=== PATIENT | male | born 1985 | race Caucasian/White ===

== ENCOUNTER 2023-10-08 12:11 | Emergency (ER) | payer OTHER, SELFPAY ==
[2023-10-08 12:54] VITALS: BP 132/85; PULSE 94; RESP 20; TEMP 37.6; O2SAT 98; BMI 26.6
--- NOTE | 2023-10-08 12:56 | ED_ITS ---
HPI - Fever General Chief Complaint: Upper Respiratory Symptoms Stated Complaint: Fever Time Seen by Provider: 10/08/23 13:30 Source: patient Mode of arrival: ambulatory Limitations: no limitations History of Present Illness HPI Narrative: Patient is a 38-year-old male presenting to the ED with complaint of subjective fever since Saturday, sore throat, nonproductive cough, epigastric pain. Denies vomiting or diarrhea. Has been taking amoxicillin from a friend without improvement. MD elicited complaint: fever Onset (ago): day(s) Context: recent antibiotic use Relieving factors: nothing Associated symptoms: chills, cough and abdominal pain Treatments prior to arrival fever: antibiotics Related Data Allergies Allergy/AdvReac Type Severity Reaction Status Date / Time No Known Allergies Allergy Unverified 04/07/20 18:42 Review of Systems 2 Review of Systems: As per HPI. Yes all other systems are reviewed and are negative Constitutional: Constitutional: Reports as per HPI [facility] Social History Social History Advance Directives: No Physical Exam 2 Vital Signs: Vital Signs: Last Vital Signs Temp 99.6 F 10/08/23 12:54 Pulse 94 10/08/23 12:54 Resp 20 10/08/23 12:54 BP 132/85 10/08/23 12:54 Pulse Ox 98 10/08/23 12:54 O2 Del Method Room Air 10/08/23 12:54 BMI result Body Mass Index 26.6 Vital signs have been reviewed and appear to be correct. Blood pressure normal. Heart rate normal. Respiratory rate normal. Temperature normal. Oxygen saturation normal. Const: General: cooperative, healthy appearing and no acute distress O rientation/consciousness: oriented to person, oriented to place, oriented to time and patient oriented x3 Limitations: no limitations HEENT: Head: Yes normocephalic and Yes atraumatic Ears: external ears normal, TM's normal bilaterally and EAC's normal General nose exam: Normal external nose present and Normal nasal mucous membranes and turbinates present Face and sinus: Yes face symmetric Mouth: Normal oral and palatal mucosa present, oropharynx normal and moist mucous membranes Throat: Yes posterior oropharynx normal, Yes tonsils normal and Yes uvula midline Eyes: Pupils: Equal, round and reactive pupils present Neck: Neck: Yes normal visual inspection, Yes no lymphadenopathy and Yes supple Resp: Effort & Inspection: normal respiratory effort and able to speak in complete sentences Auscultation: clear to auscultation bilaterally Cardio: Rate: regular rate Rhythm: regular rhythm Heart sounds: S1 normal heart sound present and S2 normal heart sound present GI: Palpation (GI): Soft to palpation and nontender Auscultation: n ormoactive bowel sounds : General: Yes no CVA tenderness Back/Spine/Pelvis: Back: no CVA tenderness Skin: General skin exam: elasticity normal and turgor normal Neuro: General: oriented to person, oriented to place, oriented to time, patient oriented x3, moves all extremities, no focal motor deficits and CN's II- XI intact bilaterally Cranial nerves: Yes Equal, round and reactive pupils present Cognition (Neuro): normal cognition Extrem: General: Yes full ROM, Yes no pedal edema and Yes no calf tenderness Psych: Mental Status: mental status grossly normal Affect: normal affect Thought process: Normal thought process present Course Course Course Narrative: This is an RME: Additional HPI, ROS, PE not included below will be deferred to primary provider. This is a 38-year-old male, with no known medical problems, presenting to the emergency department with complaints of fever, cough, congestion, sore throat, abdominal pain, nausea x3 days. On arrival, patient is alert, oriented, nontoxic appearing. Speaking full sentences. Lungs clear to auscultation bilaterally. Reporting epigastric tenderness on examination. He admits that he has been taking his friend's amoxicillin for the last several days which has not provided him with any relief. Plan: Labs, viral swabs Medical Decision Making Medical Decision Making MDM Narrative: Patient is a 38-year-old male presenting to the ED with complaint of subjective fever since Saturday, sore throat, nonproductive cough, epigastric pain. On exam patient is awake, A+Ox3, VS WNL, afebrile, normal neurological exam without focal deficits, physical exam findings as above. Given reported symptoms and physical exam findings, initial differential includes strep pharyngitis, flu, covid, RSV. Do not suspect bronchitis or pneumonia based on physical exam findings. Viral swab positive for influenza A. Labs grossly within normal limits. Patient updated on results and all questions answered. Advised patient to ensure adequate rest and adequate fluid intake, isolate at home for the next 3 days and continued wear a mask while symptomatic. Patient is outside the treatment window for Tamiflu. Advised him to alternate Tylenol and ibuprofen as needed. Return precautions discussed at bedside. Instructed patient to follow- up with primary care provider. Patient verbalized understanding of and agreement with plan. Differential Diagnosis Differential Diagnoses: The differential diagnosis associated with the presentation includes As per MDM. Lab Data [facility] Lab Attestation statement: I reviewed the patient's lab results. As per MDM. 10/08/23 14:30 10/08/23 14:30 Labs: Lab Results 10/08/23 Range/Units 14:30 WBC 7.1 (4.8-10.8) X10*3/uL RBC 5.43 (4.60-5.80) X10*6/uL Hgb 15.9 (14.0-18.0) g/dl Hct 48.5 (42.0-52.0) % MCV 89.3 (80.0-98.0) fL MCH 29.3 (27.0-33.0) pg MCHC 32.8 (31.0-36.0) g/dl RDW 13.1 (11.0-16.0) % Plt Count 228 (160-400) X10*3/uL MPV 10.4 (9.4-12.4) fL Immature Gran % (Auto) 0.4 (0.0-0.4) % Neut % (Auto) 68.3 (45-73) % Lymph % (Auto) 19.7 L (20-40) % [place] % (Auto) 10.6 (2-11) % Eos % (Auto) 0.4 (0-4) % Baso % (Auto) 0.6 (0-2) % Lymph # (Auto) 1.4 (1.2-4.9) X10*3/uL [place] # (Auto) 0.8 (0.1-1.2) X10*3/uL Eos # (Auto) 0.0 (0.0-0.4) X10*3/uL Baso # (Auto) 0.0 (0.0-0.2) X10*3/uL Abs Immat Gran (auto) 0.03 (0.00-0.03) X10*3/uL Absolute Neuts (auto) 4.8 (2.0-8.3) x10*3/uL Absolute Nucleated RBC 0.000 (0.0-0.012) X10*3/uL Nucleated RBC % (auto) 0.0 (0.0-0.2) /100WBC Sodium 138 (135-145) mmol/L Potassium 4.0 (3.3-5.1) mmol/L Chloride 104 (96-108) mmol/L Carbon Dioxide 26 (22-29) mmol/L Anion Gap 12 (12-20) BUN 8 L (9-16) mg/dL Creatinine 0.88 (0.5-1.4) mg/dL Estim Creat Clear Calc 101.7 Estimated GFR > 60 Random Glucose 83 (60-115) mg/dL Calcium 9.1 (8.4-10.2) mg/dL Total Bilirubin 0.4 (0.0-1.0) mg/dL Direct Bilirubin 0.1 (0.0-0.5) mg/dL AST 50 H (5-37) U/L ALT 91 H (0-40) U/L Alkaline Phosphatase 87 (39-117) U/L Total Protein 8.2 H (6.5-8.0) g/dL Albumin 4.4 (3.5-5.0) g/dL Lipase 20 (8-78) U/L Influenza Type A (PCR) POSITIVE A (Negative) Influenza Type B (PCR) NEGATIVE (Negative) RSV RNA Qual (PCR) NEGATIVE (Negative) SARS-CoV-2 RNA (RT-PCR) NEGATIVE (Negative) S. pyogenes GrpA GRICEL Negative (Negative) External Record Review External record reviewed: Inpatient record, Office record and Outpatient record Prescription Management I considered prescription management with: Antiviral (Patient is outside the treatment window) Discharge Plan Discharge Clinical Impression: Influenza A Patient Disposition: Home, Self-Care Instructions: Flu Shot (Vaccine) for Adults (ED), Droplet Precautions (ED), Influenza (DC) Additional Instructions: You were evaluated in the emergency department today for sore throat, congestion and cough. Your flu test was positive for flu A. You should isolate at home for another 3 days and continue to wear mask while symptomatic after that. Your symptoms should resolve over time with rest and fluids. You can take 650 mg Tylenol or 600 mg ibuprofen every 6 hours as needed for fever or pain. Please follow-up with your primary care provider for any ongoing symptoms. Return to the emergency department if you develop worsening pain, fever not controlled with Tylenol and ibuprofen, chest pain, dizziness or lightheadedness, or any other concerning symptoms. Stand Alone Forms: Work/School Release
--- NOTE | 2023-10-08 14:33 | PC.NURSE ---
labs/swabs obtained/sent to lab.
[2023-10-08 14:34] LABS: MANUAL DIFF FLAG NO
[2023-10-08 14:36] LABS: Basophils Percent Auto 0.6 % (0-2); Eosinophils Percent Auto 0.4 % (0-4); Hematocrit 48.5 % (42.0-52.0); Hemoglobin 15.9 g/dl (14.0-18.0); Imm Gran Abs Auto 0.03 X10*3/uL (0.00-0.03); Imm Gran Pct Auto 0.4 % (0.0-0.4); Lymphocytes Absolute Auto 1.4 X10*3/uL (1.2-4.9); Lymphocytes Percent Auto 19.7 % (20-40); Mean Corpuscular HGB Conc 32.8 g/dl (31.0-36.0); Mean Corpuscular Hemoglobin 29.3 pg (27.0-33.0); Mean Corpuscular Volume 89.3 fL (80.0-98.0); Mean Platelet Volume 10.4 fL (9.4-12.4); Monocytes Absolute Auto 0.8 X10*3/uL (0.1-1.2); Monocytes Percent Auto 10.6 % (2-11); Neutrophils Absolute Auto 4.8 x10*3/uL (2.0-8.3); Neutrophils Percent Auto 68.3 % (45-73); Platelet Count 228 X10*3/uL (160-400); Red Blood Count 5.43 X10*6/uL (4.60-5.80); Red Cell Distribution Width 13.1 % (11.0-16.0); White Blood Count 7.1 X10*3/uL (4.8-10.8)
[2023-10-08 14:48] LABS: IDNOW Serial# 08D9AD1C; Strep A Nucleic Acid Negative (Negative)
[2023-10-08 14:53] LABS: Alanine Aminotransferase 91 U/L (0-40); Albumin Level 4.4 g/dL (3.5-5.0); Alkaline Phosphatase 87 U/L (39-117); Anion Gap 12 (12-20); Aspartate Amino Transferase 50 U/L (5-37); Bilirubin Direct 0.1 mg/dL (0.0-0.5); Bilirubin Total 0.4 mg/dL (0.0-1.0); Blood Urea Nitrogen 8 mg/dL (9-16); Calcium 9.1 mg/dL (8.4-10.2); Carbon Dioxide 26 mmol/L (22-29); Chloride 104 mmol/L (96-108); Creatinine Clr Calc Pharmacy 101.7; Estimated Glomerular Filt Rate > 60; Glucose Random 83 mg/dL (60-115); Lipase 20 U/L (8-78); Sodium 138 mmol/L (135-145); Total Protein 8.2 g/dL (6.5-8.0)
[2023-10-08 15:14] LABS: Influenza A PCR POSITIVE (Negative); Influenza B PCR NEGATIVE (Negative); Resp Syncy Virus RNA Qual PCR NEGATIVE (Negative); SARS COV2 PCR INHOUSE NEGATIVE (Negative)
[2023-10-08 15:51] VITALS: BP 132/91; PULSE 99; RESP 16; TEMP 37.2; O2SAT 99
[2023-10-08 16:00] VITALS: O2SAT 99
[2023-10-08 16:02] VITALS: BP 132/91; PULSE 99; RESP 16; TEMP 37.2; O2SAT 99
== END 2023-10-08 16:03 | disposition home or self-care (01) ==
PROVIDERS: Physician Assistant Medical; Registered Nurse Emergency; Emergency Provider Emergency Medicine
DX: J10.1 Influenza due to other identified influenza virus with other respiratory manifestations (principal); R50.9 Fever, unspecified; Z11.52 Encounter for screening for COVID-19; Z20.822 Contact with and (suspected) exposure to COVID-19; Z79.899 Other long term (current) drug therapy
CPT/HCPCS: 0241U; 36415; 80048; 80076; 83690; 85025; 87651; 99283; 99284

== ENCOUNTER 2024-04-20 21:27 | Emergency (ER) | payer OTHER, SELFPAY ==
[2024-04-20 21:48] VITALS: BP 137/88; PULSE 94; RESP 16; TEMP 37.6; O2SAT 96; BMI 28.2
[2024-04-20 22:23] LABS: IDNOW Serial# 08D9AD1C; Strep A Nucleic Acid Negative (Negative)
[2024-04-20 22:52] LABS: Influenza A PCR NEGATIVE (Negative); Influenza B PCR NEGATIVE (Negative); Resp Syncy Virus RNA Qual PCR NEGATIVE (Negative); SARS COV2 PCR INHOUSE NEGATIVE (Negative)
[2024-04-21 01:18] VITALS: BP 134/88; PULSE 80; RESP 14; TEMP 37.3; O2SAT 99
--- NOTE | 2024-04-21 02:28 | ED.URI ---
HPI - URI/Sore Throat General Chief Complaint: Upper Respiratory Symptoms Stated Complaint: headache and fever Time Seen by Provider: 04/21/24 02:21 Source: patient Mode of arrival: ambulatory Limitations: no limitations History of Present Illness ED Provider: Dr. Candice Blunt HPI Narrative: Patient comes to the emergency room complaining of sore throat, headache, generalized malaise since this morning. Patient denies nausea vomiting or diarrhea. Related Data Previous Rx's ?Medication ?Instructions ?Recorded ibuprofen 600 mg tablet 600 mg PO TID PRN fever or pain 04/21/24 #20 tabs Allergies Allergy/AdvReac Type Severity Reaction Status Date / Time No Known Allergies Allergy Verified 04/20/24 21:50 Review of Systems Review of Systems: Constitutional : No Weight loss, No Fever, No Chills, No Night Sweats, complaining of fatigue and generalized malaise ENT/Mouth : No Hearing loss, No Ear Pain, No Nasal Congestion, No Sinus Pain, No Hoarseness, complaining of sore throat, No Rhinorrhea, No Swallowing Difficulty Eyes: No Eye Pain, No Swelling, No Redness, No Foreign Body, No Discharge, No Vision Changes Cardiovascular : No Chest Pain, No SOB, No Dyspnea on Exertion, No Orthopnea, No Edema, No Palpitations Respiratory : No Cough, No Sputum, No Wheezing, No Smoke Exposure, No Dyspnea Gastrointestinal : No Nausea, No Vomiting, No Diarrhea, No Constipation, No abdominal Pain, No Hematochezia, No Melena Genitourinary : no irregular bleeding, No Dysuria, No Urinary Frequency, No Hematuria, No Urinary Incontinence, No Urgency, No Flank Pain, No Urinary Flow Changes, No Hesitancy Musculoskeletal : No joint pain, No Myalgias, No Joint Swelling Skin : No Skin Lesions, No rash Neuro : No Weakness, No Numbness, No Paresthesias, No Loss of Consciousness, No Dizziness, No Headache Psych : No Anxiety/Panic, No Depression, No SI/HI/AH/VH, No Social Issues, Heme/Lymph: No Bruising, No Bleeding,No Lymphadenopathy Endocrine : No Polyuria, No Polydipsia, No Temperature Intolerance [facility] Social History Social History Alcohol intake: current Alcohol intake frequency: a few times a month Advance Directives: No Advance Directives Information Provided: Yes Physical Exam Vital Signs: Vital Signs: Last Vital Signs Temp 99.1 F 04/21/24 01:18 Pulse 80 04/21/24 01:18 Resp 14 04/21/24 01:18 BP 134/88 04/21/24 01:18 Pulse Ox 99 04/21/24 01:18 O2 Del Method Room Air 04/21/24 01:18 BMI result Body Mass Index 28.2 Const: Other: Appearance: Alert. Oriented X3. No acute distress. Eyes: Pupils equal, round and reactive to light. ENT: Pharynx erythematous, no vesicles , no exudates, no obvious abscesses Neck: Normal inspection. Neck supple. No lymph nodes noted. No crepitus CVS: Normal heart rate and rhythm. Pulses normal. Normal S1 and S2 Respiratory: No respiratory distress. Breath sounds normal. No Wheezing. No rales Abdomen: Soft and nontender. No rigidity. No distention. Skin: Skin warm and dry. Normal skin color. Normal skin turgor. Extremities: No lower extremity edema. No Lacerations. No Rash Neuro: Oriented X 3. No motor deficit. No sensory deficit. Moving all extremities. No slurred speech. CN 2 through 12 grossly intact Psych: calm, cooperative, normal affect Medical Decision Making Medical Decision Making [facility] Narrative: I discussed the lab with the patient's, patient tested negative for influenza, COVID and strep -patient was given p.o. viscous lidocaine and Decadron -patient is well-appearing, normal vitals, patient is speaking in full sentences, normal voice, handling own secretions well Differential Diagnosis Differential Diagnoses: The differential diagnosis associated with the presentation includes (Bacterial pharyngitis, streptococcal pharyngitis, pharyngeal abscess) Lab Data [facility] Lab Attestation statement: I reviewed the patient's lab results. Labs: Lab Results 04/20/24 Range/Units 22:08 Influenza Type A (PCR) NEGATIVE (Negative) Influenza Type B (PCR) NEGATIVE (Negative) RSV RNA Qual (PCR) NEGATIVE (Negative) SARS-CoV-2 RNA (RT-PCR) NEGATIVE (Negative) S. pyogenes GrpA GRICEL Negative (Negative) Discharge Plan Discharge Clinical Impression: Acute viral pharyngitis Patient Disposition: Home, Self-Care Instructions: Pharyngitis (ED) Additional Instructions: Please follow-up with your primary care physician tomorrow. If you have any worsening or new symptoms, please return to the emergency room or call 911 Prescriptions: New ibuprofen 600 mg tablet 600 mg PO TID PRN (Reason: fever or pain) Qty: 20 0RF Print Language: Guamanian
[2024-04-21] MEDS: dexAMETHasone sod phosphate 4 MG/ML VIAL 6 MG IVPUSH (02:37)
[2024-04-21] MEDS: Lidocaine HCl Viscous 2 % 15 ML SOLUTION MUCOUS MEM (02:37)
[2024-04-21 02:40] VITALS: O2SAT 99
[2024-04-21 02:43] VITALS: PULSE 79; RESP 18; O2SAT 99
[2024-04-21 02:46] VITALS: BP 134/88; PULSE 79; RESP 18; TEMP 37.3; O2SAT 99
== END 2024-04-21 02:47 | disposition home or self-care (01) ==
PROVIDERS: Emergency Provider Emergency Medicine
DX: J02.9 Acute pharyngitis, unspecified (principal); Z03.818 Encounter for observation for suspected exposure to other biological agents ruled out; R53.81 Other malaise; R51.9 Headache, unspecified
CPT/HCPCS: 0241U; 87651; 99283; 99284; J1100

== ENCOUNTER 2025-06-05 09:06 | Emergency (ER) | payer OTHER, SELFPAY ==
[2025-06-05 09:09] VITALS: BP 118/73; PULSE 76; RESP 16; TEMP 36.6; O2SAT 97; BMI 28.9
--- NOTE | 2025-06-05 10:09 | ED_ITS ---
HPI - Wound/Laceration General Chief Complaint: Wound/Laceration Stated Complaint: Wound Time Seen by Provider: 06/05/25 09:14 Source: patient, RN notes reviewed and shift nurse manager Mode of arrival: ambulatory Limitations: language barrier History of Present Illness ED Provider: Letha Bustos PA-C HPI narrative: This is a 44-vrpo-zmm-[place] speaking male, with no known medical problems, who presents to the ER with concerns of a wound on left kinney. Patient awoke today and noted active bleeding from a wound on the kinney. Patient is uncertain of the mechanism of injury; denies any remembered trauma or injury. prior similar episodes. Tetanus vaccination status unknown; patient agrees to update today. No other injuries. No fevers, chills. No other complaints or concerns at this time. Onset (ago): day(s) Place: home Patient tetanus UTD: No Context: accidental Associated symptoms: none Related Data Previous Rx's ?Medication ?Instructions ?Recorded ibuprofen 600 mg tablet 600 mg PO TID PRN fever or p ain 04/21/24 #20 tabs cephalexin 500 mg capsule 500 mg PO QID 5 days #20 cap s 06/05/25 Allergies Allergy/AdvReac Type Severity Reaction Status Date / Time No Known Allergies Allergy Verified 06/05/25 09:12 Review of Systems Review of Systems: Constitutional : No Fever, No Chills ENT/Mouth : No sore throat, No Rhinorrhea Eyes: No Eye Pain, No Swelling, No Redness Cardiovascular : No Chest Pain, No SOB Respiratory : No Cough, No Sputum Gastrointestinal : No Nausea, No Vomiting, No Diarrhea, No abdominal Pain Genitourinary : No Dysuria, No Hematuria Musculoskeletal : No joint pain, No Myalgias, No Joint Swelling Skin : No Skin Lesions, +wound Neuro : No Weakness, No Numbness, No Headache All other systems reviewed and are negative Yes all other systems are reviewed and are negative Constitutional: Constitutional: Reports as per [facility] Social History Social History Alcohol intake: current Alcohol intake frequency: a few times a month Alcohol type: beer Smoked in Last 30 Days: No Use of substances other than those prescribed or required for medical reasons: No Advance Directives: No Advance Directives Information Provided: No Physical Exam Exam: Exam: General: Awake, alert, and oriented X3. No acute distress. HEENT: Normal inspection CVS: Normal heart rate and rhythm. Pulses normal. Respiratory: No respiratory distress Skin: Left anterior kinney with 2cm partial thickness laceration with no surrounding erythema, warmth, or foreign body. Extremities: Ambulatory, moving all extremities well. Neuro: Oriented X 3. No motor deficit. No sensory deficit. Vital Signs: Vital Signs: Last Vital Signs Temp 97.9 F 06/05/25 09:09 Pulse 76 06/05/25 09:09 Resp 16 06/05/25 09:09 BP 118/73 06/05/25 09:09 Pulse Ox 97 06/05/25 09:09 O2 Del Method Room Air 06/05/25 09:09 BMI result Body Mass Index 28.9 Medications Administered Discontinued Medications Generic Name Dose Route Start Last Admin Trade Name Freq PRN Reason Stop Dose Admin Diphtheria/Tetanus/Acell Pertussis 0.5 ml 06/05/25 10:44 06/05/25 10:52 Diphth,Pertus(Acell),Tet Adult 0.5 Ml Syringe IM 06/05/25 10:45 0.5 ml .ONCE ONE Administration Lidocaine HCl 5 ml 06/05/25 10:44 06/05/25 10:53 Lidocaine Hcl 1 % Mpf 5 Ml Vial INFILTRATI 06/05/25 10:45 5 ml ONCE ONE Administration Medical Decision Making Medical Decision Making MDM Narrative: This is a 32-nomy-vnp-male, with no known medical problems, who presents to the ER with concerns of a wound on left kinney. On arrival, vital signs WNL. He is speaking in full sentences under no acute distress. Superficial laceration on kinney; not deep on inspection after irrigation; minimal surrounding tissue damage, unclear etiology, discovered this AM. Problem #1: Superficial laceration of kinney Assessment: Small, not deep; suitable for simple closure. Plan: * Irrigation and cleansing of wound with saline. * Local anesthesia to be administered; placed 2 simple interrupted sutures per patient preference after risks/benefits discussion (vs Steri-Strips). * Tetanus-diphtheria booster to be administered today (tetanus status unknown > 5 years). * Given wound care instructions, he understands and agrees with plan. Patient stable for discharge. Differential Diagnosis Differential Diagnoses: The differential diagnosis associated with the presentation includes Laceration, contusion, puncture wound, bleeding varicose vein Procedures Laceration Laceration 1: Site: lower extremity Side (If applicable): left Size (cm): 2 Description: linear Depth: simple, single layer Local Anesthetic: lidocaine 1% Amount of anesthesia used (mL): 4 Pre-repair: wound explored, irrigated extensively and deep structures intact Skin layer closed with: nylon Size (cm): 4-0 Number of sutures: 2 Technique: simple, interrupted Discharge Plan Discharge Clinical Impression: Laceration Patient Disposition: Home, Self-Care Instructions: Care For Your Stitches (ED), Laceration (ED) Additional Instructions: Follow-Up Recommendations: * Return or follow up with your PCP for suture removal in 7?10 days. We updated your tdap in the department today. Please update your records. Keep the wound clean. You may gently wash the area with tap water and mild soap starting 12?24 hours after the procedure; tap water is as effective as sterile saline for wound cleansing. After cleaning, pat dry, then cover with a non-adherent, sterile dressing.? Change the dressing daily or if it becomes wet or dirty. Avoid using antiseptics like iodine or alcohol on the wound, as these can delay healing. Suture Care: * Sutures should remain in place and dry for the first 12?24 hours. After this period, gentle washing is permitted and does not increase infection risk. * Do not pick at or remove the sutures yourself. Signs of Infection: * Watch for?increasing redness, swelling, warmth, pain, pus or cloudy drainage, red streaks, fever, or chills. If any of these occur, contact your healthcare provider promptly. * Mild redness and tenderness are normal, but worsening symptoms may indicate infection. Activity Restrictions: * Limit strenuous activity?involving the affected leg for the first few days to prevent reopening the wound. * Avoid swimming, soaking in baths, or exposing the wound to dirt or contaminants until sutures are removed and the wound is fully healed. If you have questions or concerns, or if you notice any signs of infection, please contact your healthcare provider. Prescriptions: New cephalexin 500 mg capsule 500 mg PO QID 5 Days Qty: 20 0RF No Action ibuprofen 600 mg tablet 600 mg PO TID PRN (Reason: fever or pain) Qty: 20 0RF Stand Alone Forms: Work/School Release Print Language: Singaporean
[2025-06-05] MEDS: Diphth,Pertus(ACell),Tet Adult 0.5 ML SYRINGE IM (10:52)
[2025-06-05] MEDS: Lidocaine HCl 1 % MPF 5 ML VIAL INFILTRATI (10:53)
--- NOTE | 2025-06-05 11:01 | PC.NURSE ---
patient a&ox3, vss, wound cleaned by provider, pt medicated with tetanus shot per order, lido obtained for provider to inject into wound area/lac tray in room call arreguin within reach, awaiting for provider, plan of care ongoing
[2025-06-05 11:44] VITALS: BP 116/77; PULSE 72; RESP 16; TEMP 36.6; O2SAT 97
== END 2025-06-05 11:45 | disposition home or self-care (01) ==
PROVIDERS: Emergency Provider Emergency Medicine
DX: S81.812A Laceration without foreign body, left lower leg, initial encounter (principal); Z23 Encounter for immunization; X58.XXXA Exposure to other specified factors, initial encounter; Y93.9 Activity, unspecified; Y92.009 Unspecified place in unspecified non-institutional (private) residence as the place of occurrence of the external cause; Y99.9 Unspecified external cause status
CPT/HCPCS: 12001; 90471; 90715; 99284; J2003